=== PATIENT | male | born 1945 | race Caucasian/White ===

== ENCOUNTER → 2019-11-13 | Outpatient (CLI) | payer MEDICARE ==
[~2019-11-13] MED LIST: ATOR20 PO; Aspir 8181 MG PO; DULO60 PO; ENDOCET PO; EUTHYROX50 MCG PO; FAMO40 PO; FERSU300 PO; FLUTICASONE-SA1 EAC1 INH; GABA300 PO; GABA600 PO; HYDMOR2 PO; LACT10SY PO; LISI20 PO; METO25ER PO; MORP30 PO; NAPR250 PO; NAPR500ERA PO; OMEP40CA12 PO; OXYACE5T PO; OXYC15ER PO; OXYC20ER PO; OXYC5 PO; OXYCODONE HCL E20 MG PO; PRILOSEC; Prilosec Otc20 MG PO; RXHYDMOR2 PO; SERT50 PO
[2019-11-13 12:46] LABS: BASOPHILS ABSOLUTE AUTO 0.03 K/mm3 (0.00-0.23); BASOPHILS PERCENT AUTO 1 % (0-2); EOSINOPHILS ABSOLUTE AUTO 0.36 K/mm3 (0.00-0.68); EOSINOPHILS PERCENT AUTO 6 % (0-6); Hemoglobin 13.1 g/dL (13.5-17.5); IMMATURE GRAN ABSOLUTE AUTO 0.01 K/mm3 (0.00-0.10); IMMATURE GRAN PERCENT AUTO 0 % (0-1); LYMPHOCYTES ABSOLUTE AUTO 2.43 K/mm3 (0.84-5.20); LYMPHOCYTES PERCENT AUTO 41 % (21-46); MONOCYTES ABSOLUTE AUTO 0.44 K/mm3 (0.16-1.47); MONOCYTES PERCENT AUTO 7 % (4-13); Mean Corpuscular HGB Conc 33.6 g/dL (31.5-36.5); Mean Corpuscular Volume 89 fL (80-100); Mean Platelet Volume 9.4 fL (9.1-12.4); NEUTROPHILS ABSOLUTE AUTO 2.67 K/mm3 (1.96-9.15); NEUTROPHILS PERCENT AUTO 45 % (41-73); Platelet Count 261 K/mm3 (150-400); RDW Coefficient Variation 13.7 % (11.7-14.2); RDW Standard Deviation 44.7 fL (35.1-46.3); Red Blood Cell Count 4.37 M/mm3 (4.30-5.90); White Blood Cell Count 5.94 K/mm3 (4.00-11.30)
[2019-11-13 13:01] LABS: Alanine Aminotransfer (ALT/SGP 20 U/L (12-78); Albumin, Blood 4.1 g/dL (3.4-5.0); Albumin/Globulin Ratio 1.3 (0.8-1.8); Alk Phos 83 U/L (40-126); Anion Gap 11 mmol/L (6-16); Aspartate Aminotrans (AST/SGOT 18 U/L (12-37); Bilirubin, Total 0.8 mg/dL (0.1-1.0); Blood Urea Nitrogen 68 mg/dL (8-24); Bun/Creatinine Ratio 16.3 (12.0-20.0); CO2, Blood 27 mmol/L (21-32); Calcium, Blood 8.2 mg/dL (8.5-10.1); Chloride, Blood 101 mmol/L (98-108); Creatinine, Blood 4.17 mg/dL (0.60-1.20); Free Thyroxine 1.49 ng/dL (0.70-1.60); Globulin, Blood 3.2 g/dL (2.2-4.0); Glomerular Filtration Rate 14 (60-); Glucose, Blood 152 mg/dL (70-99); Potassium, Blood 4.2 mmol/L (3.5-5.5); Sodium, Blood 139 mmol/L (136-145); Thyroid Stimulating Hormone 2.109 uIU/mL (0.360-4.800); Total Protein, Blood 7.3 g/dL (6.4-8.2)
[2019-11-13 13:04] LABS: Troponin I <0.017 ng/mL (0.000-0.040)
== END | disposition home or self-care (01) ==
LOC: LAB SHORT 12:35 → LAB EV 12:35
PROVIDERS: General Practice
DX: I95.9 Hypotension, unspecified (principal); R53.81 Other malaise; R42 Dizziness and giddiness; N17.9 Acute kidney failure, unspecified
CPT/HCPCS: 80053; 82550; 83880; 84439; 84443; 84484; 85025

== ENCOUNTER → 2019-11-14 | Outpatient (CLI) | payer MEDICARE ==
[2019-11-14 10:40] LABS: BASOPHILS ABSOLUTE AUTO 0.04 K/mm3 (0.00-0.23); BASOPHILS PERCENT AUTO 1 % (0-2); EOSINOPHILS ABSOLUTE AUTO 0.35 K/mm3 (0.00-0.68); EOSINOPHILS PERCENT AUTO 5 % (0-6); Hematocrit 35.2 % (37.0-53.0); Hemoglobin 11.3 g/dL (13.5-17.5); IMMATURE GRAN ABSOLUTE AUTO 0.02 K/mm3 (0.00-0.10); IMMATURE GRAN PERCENT AUTO 0 % (0-1); LYMPHOCYTES ABSOLUTE AUTO 1.78 K/mm3 (0.84-5.20); LYMPHOCYTES PERCENT AUTO 26 % (21-46); MONOCYTES ABSOLUTE AUTO 0.51 K/mm3 (0.16-1.47); MONOCYTES PERCENT AUTO 7 % (4-13); Mean Corpuscular HGB 29.7 pg (26.0-34.0); Mean Corpuscular HGB Conc 32.1 g/dL (31.5-36.5); Mean Corpuscular Volume 92 fL (80-100); Mean Platelet Volume 9.1 fL (9.1-12.4); NEUTROPHILS ABSOLUTE AUTO 4.16 K/mm3 (1.96-9.15); NEUTROPHILS PERCENT AUTO 61 % (41-73); Platelet Count 190 K/mm3 (150-400); RDW Coefficient Variation 13.6 % (11.7-14.2); RDW Standard Deviation 46.3 fL (35.1-46.3); Red Blood Cell Count 3.81 M/mm3 (4.30-5.90); White Blood Cell Count 6.86 K/mm3 (4.00-11.30)
[2019-11-14 10:45] LABS: Bun/Creatinine Ratio 24.3 (12.0-20.0); Calcium, Blood 7.1 mg/dL (8.5-10.1); Creatinine, Blood 1.85 mg/dL (0.60-1.20); Potassium, Blood 4.8 mmol/L (3.5-5.5)
== END | disposition home or self-care (01) ==
LOC: LAB SHORT 10:36 → LAB EV 10:36
PROVIDERS: General Practice
DX: N17.9 Acute kidney failure, unspecified (principal)
CPT/HCPCS: 80048; 85025

== ENCOUNTER 2020-10-13 09:55 | Day surgery (SDC) | payer MEDICARE ==
[~2020-10-13] VITALS: Ht 172.7 cm; Wt 81.9 kg
[~2020-10-13 09:55] MED LIST changes: +CELE100 PO; +DOCU100 PO; +HYDROCHLOROTH12.5 MG PO; +LIPITOR10 MG PO; +ONDA4 PO
--- NOTE | 2020-10-13 11:22 | NUR ---
10/13/20 1122 Maura Judge FIRST ATTEMPT MISSED BY GISSELLE IN THE RIGHT HAND. SECOND ATTEMPT MISSED IN THE RIGHT HAND BY RN. THIRD ATTEMPT MISSED BY RN IN THE LEFT HAND. FOURTH ATTEMPT MISSED BY RN IN THE LEFT WRIST.
== END 2020-10-13 13:10 | disposition home or self-care (01) ==
LOC: ORSCSDS 09:55
PROVIDERS: Internal Medicine Gastroenterology
PROC: 0DBN8ZX Excision of Sigmoid Colon, Via Natural or Artificial Opening Endoscopic, Diagnostic (ICD-10-PCS; principal; 2020-10-13 11:45)
PROC: 0DB58ZX Excision of Esophagus, Via Natural or Artificial Opening Endoscopic, Diagnostic (ICD-10-PCS; principal; 2020-10-13 11:45)
PROC: 0D758ZZ Dilation of Esophagus, Via Natural or Artificial Opening Endoscopic (ICD-10-PCS; principal; 2020-10-13 11:45)
PROC: 0DBM8ZX Excision of Descending Colon, Via Natural or Artificial Opening Endoscopic, Diagnostic (ICD-10-PCS; principal; 2020-10-13 11:45)
PROC: 0DB68ZX Excision of Stomach, Via Natural or Artificial Opening Endoscopic, Diagnostic (ICD-10-PCS; principal; 2020-10-13 11:45)
DX: R13.10 Dysphagia, unspecified (principal); R11.2 Nausea with vomiting, unspecified; Z86.010 Personal history of colon polyps; D12.4 Benign neoplasm of descending colon; D12.5 Benign neoplasm of sigmoid colon; I10 Essential (primary) hypertension; I25.10 Atherosclerotic heart disease of native coronary artery without angina pectoris; G47.33 Obstructive sleep apnea (adult) (pediatric); D64.9 Anemia, unspecified; K57.30 Diverticulosis of large intestine without perforation or abscess without bleeding; Z79.82 Long term (current) use of aspirin; Z79.899 Other long term (current) drug therapy
CPT/HCPCS: 88305; 88342; J2704; J7120

== ENCOUNTER → 2020-11-27 | Outpatient (CLI) | payer MEDICARE ==
[2020-11-27 13:55] LABS: Microalbumin, Urine Quant. <5.000 mg/L (0.000-20.000); Protein, Urine Quantitative <5.0 mg/dL (0.0-11.9)
== END | disposition home or self-care (01) ==
LOC: LAB 11:08 → LAB SHORT 11:08 → LAB FUT 11-20 12:35
PROVIDERS: Internal Medicine Nephrology
DX: N18.30 Chronic kidney disease, stage 3 unspecified (principal); D63.1 Anemia in chronic kidney disease; N25.81 Secondary hyperparathyroidism of renal origin; E55.9 Vitamin D deficiency, unspecified; E78.00 Pure hypercholesterolemia, unspecified; G60.9 Hereditary and idiopathic neuropathy, unspecified; D51.8 Other vitamin B12 deficiency anemias; D52.8 Other folate deficiency anemias; D50.9 Iron deficiency anemia, unspecified; R76.9 Abnormal immunological finding in serum, unspecified; R94.5 Abnormal results of liver function studies; R94.6 Abnormal results of thyroid function studies
CPT/HCPCS: 81050; 82043; 82570; 84156

== ENCOUNTER → 2024-01-31 | Outpatient (CLI) | payer OTHER ==
[2024-01-31 13:58] LABS: BASOPHILS ABSOLUTE AUTO 0.02 K/mm3 (0.00-0.23); BASOPHILS PERCENT AUTO 0 % (0-2); EOSINOPHILS ABSOLUTE AUTO 0.25 K/mm3 (0.00-0.68); EOSINOPHILS PERCENT AUTO 3 % (0-6); Hematocrit 35.3 % (37.0-53.0); Hemoglobin 11.3 g/dL (13.5-17.5); IMMATURE GRAN ABSOLUTE AUTO 0.02 K/mm3 (0.00-0.10); IMMATURE GRAN PERCENT AUTO 0 % (0-1); LYMPHOCYTES ABSOLUTE AUTO 2.59 K/mm3 (0.84-5.20); LYMPHOCYTES PERCENT AUTO 27 % (21-46); MONOCYTES ABSOLUTE AUTO 0.69 K/mm3 (0.16-1.47); MONOCYTES PERCENT AUTO 7 % (4-13); Mean Corpuscular HGB 28.7 pg (26.0-34.0); Mean Corpuscular Volume 90 fL (80-100); Mean Platelet Volume 8.2 fL (9.1-12.4); NEUTROPHILS ABSOLUTE AUTO 6.18 K/mm3 (1.96-9.15); NEUTROPHILS PERCENT AUTO 63 % (41-73); Platelet Count 261 K/mm3 (150-400); RDW Coefficient Variation 14.2 % (11.7-14.2); RDW Standard Deviation 46.1 fL (35.1-46.3); Red Blood Cell Count 3.94 M/mm3 (4.30-5.90); White Blood Cell Count 9.75 K/mm3 (4.00-11.30)
[2024-01-31 14:03] LABS: Calcium, Blood 8.6 mg/dL (8.5-10.1); Creatinine, Blood 1.27 mg/dL (0.60-1.20); Potassium, Blood 4.2 mmol/L (3.5-5.5)
== END | disposition home or self-care (01) ==
LOC: LAB 13:53 → LAB SHORT 13:53
PROVIDERS: Physician Assistant
DX: R53.83 Other fatigue (principal)
CPT/HCPCS: 80048; 85025

== ENCOUNTER → 2024-05-04 | Outpatient (CLI) | payer OTHER | LOC: LAB 16:23 → LAB SHORT 16:23 | DX: N39.0 Urinary tract infection, site not specified (principal) | CPT/HCPCS: 87086 ==

== ENCOUNTER 2024-10-14 09:50 | Emergency (ER) | payer OTHER ==
[~2024-10-14] VITALS: Ht 172.7 cm; Wt 78.9 kg
[2024-10-14] MEDS ORDERED: SYNTHROID50 MC1 PO ×2 (10:04)
[2024-10-14] MEDS ORDERED: AMLODIPINE BESYL5 MG PO ×2 (10:04)
[2024-10-14] MEDS ORDERED: XTAMPZA ER18 MG PO ×2 (10:05)
[2024-10-14] MEDS ORDERED: BISA10S PR (10:06)
[2024-10-14] MEDS ORDERED: Robaxin750 MG PO (10:08)
[2024-10-14] MEDS ORDERED: OXYC5 PO ×2 (10:08)
[2024-10-14] MEDS ORDERED: Lidocaine 2% Viscous Soln 15 ML UDC PO ONE (10:25)
[2024-10-14 10:28] LABS: BASOPHILS ABSOLUTE AUTO 0.04 K/mm3 (0.00-0.23); BASOPHILS PERCENT AUTO 0 % (0-2); EOSINOPHILS ABSOLUTE AUTO 0.04 K/mm3 (0.00-0.68); EOSINOPHILS PERCENT AUTO 0 % (0-6); Hematocrit 32.5 % (37.0-53.0); Hemoglobin 10.5 g/dL (13.5-17.5); IMMATURE GRAN ABSOLUTE AUTO 0.11 K/mm3 (0.00-0.10); IMMATURE GRAN PERCENT AUTO 1 % (0-1); LYMPHOCYTES ABSOLUTE AUTO 3.30 K/mm3 (0.84-5.20); LYMPHOCYTES PERCENT AUTO 21 % (21-46); MONOCYTES ABSOLUTE AUTO 1.18 K/mm3 (0.16-1.47); MONOCYTES PERCENT AUTO 7 % (4-13); Mean Corpuscular HGB Conc 32.3 g/dL (31.5-36.5); Mean Corpuscular Volume 86 fL (80-100); NEUTROPHILS ABSOLUTE AUTO 11.25 K/mm3 (1.96-9.15); NEUTROPHILS PERCENT AUTO 71 % (41-73); NRBC ABSOLUTE 0.00 K/mm3 (0.00-0.02); NRBC Auto 0.0 /100 WBC (0.0-0.2); Platelet Count 398 K/mm3 (150-400); RDW Coefficient Variation 22.3 % (11.7-14.2); RDW Standard Deviation 68.5 fL (35.1-46.3)
[2024-10-14 10:51] LABS: Alanine Aminotransfer (ALT/SGP 148.0 U/L (12-78); Albumin, Blood 2.6 g/dL (3.4-5.0); Albumin/Globulin Ratio 0.6 (0.8-1.8); Anion Gap 8.0 mmol/L (3-11); Aspartate Aminotrans (AST/SGOT 59.0 U/L (12-37); Bilirubin, Total 0.4 mg/dL (0.1-1.0); Blood Urea Nitrogen 36.0 mg/dL (8-24); CO2, Blood 27.0 mmol/L (21-32); Calcium, Blood 8.7 mg/dL (8.5-10.1); Chloride, Blood 100.0 mmol/L (98-108); Creatinine, Blood 0.91 mg/dL (0.60-1.20); Globulin, Blood 4.0 g/dL (2.2-4.0); Glucose, Blood 145.0 mg/dL (70-99); Potassium, Blood 4.7 mmol/L (3.5-5.5); Sodium, Blood 130.0 mmol/L (136-145); Total Protein, Blood 6.6 g/dL (6.4-8.2)
[2024-10-14] MEDS ORDERED: Ondansetron HCl 2 MG / ML 2ML Vial IV ONE (11:40)
[2024-10-14] MEDS ORDERED: Colace100 MG PO (12:37)
[2024-10-14] MEDS ORDERED: OMEP20ER PO (12:37)
[2024-10-14 12:52] VITALS: BP 115/73
[2024-10-15] MEDS ORDERED: Calcium Carbon500 MG PO (06:17)
[2024-10-15] MEDS ORDERED: OMEP20ER PO ×3 (06:17→23:21)
[2024-10-15] MEDS ORDERED: FAMO20 PO (23:20)
[2024-10-15] MEDS ORDERED: COLACE100 MG PO ×2 (23:23)
[2024-10-15] MEDS ORDERED: AMITRIPTYLINE H25 MG PO ×2 (23:24)
== END 2024-10-14 13:00 | disposition home or self-care (01) ==
LOC: ER 09:50
PROVIDERS: Emergency Medicine
DX: R10.13 Epigastric pain (principal); I10 Essential (primary) hypertension; K21.9 Gastro-esophageal reflux disease without esophagitis; E78.5 Hyperlipidemia, unspecified; Z79.899 Other long term (current) drug therapy; Z79.2 Long term (current) use of antibiotics
CPT/HCPCS: 74022; 80053; 83690; 84484; 85025; 93005; 93010; 96374; 99284-25; A9270; J2405

== ENCOUNTER 2024-10-15 02:48 | Emergency (ER) | payer OTHER ==
[~2024-10-15] VITALS: Ht 172.7 cm; Wt 78.9 kg
[~2024-10-15 02:48] MED LIST changes: +AMLODIPINE BESYL5 MG PO; +BISA10S PR; +Colace100 MG PO; +OMEP20ER PO; +Robaxin750 MG PO; +SYNTHROID50 MC1 PO; +XTAMPZA ER18 MG PO
[2024-10-15 03:08] LABS: BASOPHILS ABSOLUTE AUTO 0.05 K/mm3 (0.00-0.23); BASOPHILS PERCENT AUTO 0 % (0-2); EOSINOPHILS ABSOLUTE AUTO 0.03 K/mm3 (0.00-0.68); EOSINOPHILS PERCENT AUTO 0 % (0-6); Hematocrit 30.9 % (37.0-53.0); Hemoglobin 9.8 g/dL (13.5-17.5); IMMATURE GRAN ABSOLUTE AUTO 0.12 K/mm3 (0.00-0.10); IMMATURE GRAN PERCENT AUTO 1 % (0-1); LYMPHOCYTES ABSOLUTE AUTO 3.36 K/mm3 (0.84-5.20); LYMPHOCYTES PERCENT AUTO 15 % (21-46); MONOCYTES ABSOLUTE AUTO 1.28 K/mm3 (0.16-1.47); MONOCYTES PERCENT AUTO 6 % (4-13); Mean Corpuscular HGB Conc 31.7 g/dL (31.5-36.5); Mean Corpuscular Volume 86 fL (80-100); NEUTROPHILS ABSOLUTE AUTO 17.05 K/mm3 (1.96-9.15); NEUTROPHILS PERCENT AUTO 78 % (41-73); NRBC ABSOLUTE 0.00 K/mm3 (0.00-0.02); NRBC Auto 0.0 /100 WBC (0.0-0.2); Platelet Count 471 K/mm3 (150-400); RDW Coefficient Variation 22.3 % (11.7-14.2); RDW Standard Deviation 68.5 fL (35.1-46.3)
[2024-10-15 03:27] LABS: Alanine Aminotransfer (ALT/SGP 123.0 U/L (12-78); Albumin, Blood 2.7 g/dL (3.4-5.0); Albumin/Globulin Ratio 0.7 (0.8-1.8); Anion Gap 8.0 mmol/L (3-11); Aspartate Aminotrans (AST/SGOT 38.0 U/L (12-37); Bilirubin, Total 0.3 mg/dL (0.1-1.0); Blood Urea Nitrogen 38.0 mg/dL (8-24); CO2, Blood 27.0 mmol/L (21-32); Calcium, Blood 8.4 mg/dL (8.5-10.1); Chloride, Blood 101.0 mmol/L (98-108); Creatinine, Blood 0.92 mg/dL (0.60-1.20); Globulin, Blood 3.7 g/dL (2.2-4.0); Glucose, Blood 156.0 mg/dL (70-99); Potassium, Blood 4.9 mmol/L (3.5-5.5); Sodium, Blood 131.0 mmol/L (136-145); Total Protein, Blood 6.4 g/dL (6.4-8.2)
[2024-10-15] MEDS ORDERED: Lidocaine 2% Viscous Soln 15 ML UDC PO ONE (03:35)
[2024-10-15 06:00] VITALS: BP 101/73
[2024-10-15] MEDS ORDERED: OMEP20ER PO ×3 (06:17→23:21)
[2024-10-15] MEDS ORDERED: Calcium Carbon500 MG PO (06:17)
[2024-10-15] MEDS ORDERED: NS 1,000 ML IV ONE (21:56)
[2024-10-15] MEDS ORDERED: FAMO20 PO (23:20)
[2024-10-15] MEDS ORDERED: COLACE100 MG PO ×2 (23:23)
[2024-10-15] MEDS ORDERED: AMITRIPTYLINE H25 MG PO ×2 (23:24)
== END 2024-10-15 06:47 | disposition home or self-care (01) ==
LOC: ER 02:48
PROVIDERS: Student in an Organized Health Care Education/Training Program
DX: K21.9 Gastro-esophageal reflux disease without esophagitis (principal); Z79.82 Long term (current) use of aspirin; Z79.890 Hormone replacement therapy; Z79.899 Other long term (current) drug therapy; E78.5 Hyperlipidemia, unspecified
CPT/HCPCS: 71045; 80053; 83690; 83735; 84484; 85025; 93005; 93010; 99284-25; A9270; J7030; J7120

== ENCOUNTER 2024-10-15 21:32 | Inpatient (IN) | payer OTHER ==
[~2024-10-15] VITALS: Ht 172.7 cm; Wt 78.6 kg
[~2024-10-15 21:32] MED LIST changes: +Calcium Carbon500 MG PO
[2024-10-15] MEDS ORDERED: NS 1,000 ML IV SCH (21:50)
[2024-10-15 21:54] LABS: BASOPHILS ABSOLUTE AUTO 0.04 K/mm3 (0.00-0.23); BASOPHILS PERCENT AUTO 0 % (0-2); EOSINOPHILS ABSOLUTE AUTO 0.01 K/mm3 (0.00-0.68); EOSINOPHILS PERCENT AUTO 0 % (0-6); Hematocrit 26.0 % (37.0-53.0); Hemoglobin 8.1 g/dL (13.5-17.5); IMMATURE GRAN ABSOLUTE AUTO 0.09 K/mm3 (0.00-0.10); IMMATURE GRAN PERCENT AUTO 1 % (0-1); LYMPHOCYTES ABSOLUTE AUTO 3.55 K/mm3 (0.84-5.20); LYMPHOCYTES PERCENT AUTO 23 % (21-46); MONOCYTES ABSOLUTE AUTO 0.78 K/mm3 (0.16-1.47); MONOCYTES PERCENT AUTO 5 % (4-13); Mean Corpuscular HGB Conc 31.2 g/dL (31.5-36.5); Mean Corpuscular Volume 87 fL (80-100); NEUTROPHILS ABSOLUTE AUTO 10.70 K/mm3 (1.96-9.15); NEUTROPHILS PERCENT AUTO 71 % (41-73); NRBC ABSOLUTE 0.00 K/mm3 (0.00-0.02); NRBC Auto 0.0 /100 WBC (0.0-0.2); Platelet Count 443 K/mm3 (150-400); RDW Coefficient Variation 22.6 % (11.7-14.2); RDW Standard Deviation 70.0 fL (35.1-46.3)
[2024-10-15 22:12] LABS: Source, Urine Clean Catch
[2024-10-15 22:15] LABS: Alanine Aminotransfer (ALT/SGP 115.0 U/L (12-78); Albumin, Blood 2.4 g/dL (3.4-5.0); Albumin/Globulin Ratio 0.8 (0.8-1.8); Anion Gap 9.0 mmol/L (3-11); Aspartate Aminotrans (AST/SGOT 56.0 U/L (12-37); Bilirubin, Total 0.3 mg/dL (0.1-1.0); Blood Urea Nitrogen 56.0 mg/dL (8-24); CO2, Blood 24.0 mmol/L (21-32); Calcium, Blood 8.0 mg/dL (8.5-10.1); Chloride, Blood 104.0 mmol/L (98-108); Creatinine, Blood 2.05 mg/dL (0.60-1.20); Globulin, Blood 3.1 g/dL (2.2-4.0); Glucose, Blood 131.0 mg/dL (70-99); Potassium, Blood 5.5 mmol/L (3.5-5.5); Sodium, Blood 131.0 mmol/L (136-145); Total Protein, Blood 5.5 g/dL (6.4-8.2)
[2024-10-15 22:28] LABS: Bilirubin, Urine Neg (Neg); Glucose Qualitative, Urine Neg (Neg); Ketones, Urine Neg (Neg); Leukocyte Esterase, Urine Neg (Neg); Protein, Urine 1+ (Neg); Specific Gravity, Urine 1.015 (1.003-1.022); Urobilinogen, Urine NORM (Normal)
[2024-10-15 23:01] LABS: Color, Urine Yellow (P-Yellow); White Blood Cells, Urine 0-2 /hpf (0-5)
[2024-10-15] MEDS ORDERED: Cefepime HCl 2,000 MG in NS 100 ML IV ONE (23:15)
[2024-10-15] MEDS ORDERED: Vancomycin (Pharmacy Consult) IV PRN (23:15)
[2024-10-15] MEDS ORDERED: FAMO20 PO (23:20)
[2024-10-15] MEDS ORDERED: OMEP20ER PO ×2 (23:21)
[2024-10-15] MEDS ORDERED: COLACE100 MG PO ×2 (23:23)
[2024-10-15] MEDS ORDERED: AMITRIPTYLINE H25 MG PO ×2 (23:24)
[2024-10-16] VITALS (50 sets, daily range): BP systolic 82–151; BP diastolic 49–88
[2024-10-16] MEDS ORDERED: Vancomycin (Pharmacy Consult) IV SCH (00:25)
[2024-10-16 01:29] LABS: Hematocrit 22.1 % (37.0-53.0); Hemoglobin 7.1 g/dL (13.5-17.5)
[2024-10-16 01:35] LABS: pH Blood Venous 7.43 (7.34-7.37)
[2024-10-16 01:36] LABS: Prothrombin Time Results 12.5 Sec (9.7-11.5)
[2024-10-16 02:37] LABS: Influenza A, PCR NEGATIVE (NEGATIVE); Influenza B, PCR NEGATIVE (NEGATIVE); Resp Syncytial Virus, PCR NEGATIVE (NEGATIVE); SARS-Cov-2 (COVID-19) PCR, MMC NEGATIVE (NEGATIVE)
[2024-10-16] MEDS ORDERED: NS 500 ML IV ONE (03:31)
[2024-10-16] MEDS ORDERED: Pantoprazole Sodium 40 MG Injection IV SCH (06:00)
--- NOTE | 2024-10-16 06:31 | NUR ---
SHIFT SUMMARY PATIENT ARRIVED TO ICU FROM ED AT 0228. LEVOPHED RUNNING AT 9.8MCG/MIN. PATIENT ALERT BUT CONFUSED. FOLLOWED COMMANDS IN ALL 4 EXTREMITIES. A FIB WITH RATE 90-110'S. PULSES PALPABLE THROUGHOUT. PATIENT WAS ON 15L NON REBREATHER, RESPIRATORY THERAPIST TRANSITIONED TO 10L HFNC. PATIENT SATING >95%. CLEAR OVER DIMINISHED LUNG SOUNDS. BOWEL SOUNDS ACTIVE. REDNESS NOTED ON SACRUM AND LEFT HEEL. PICTURES TAKEN AND PLACED IN CHART. 1 UNIT PRBCS GIVEN. LEVOPHED TITRATED PER EMAR TO MAINTAIN MAP >65. CENTRAL LINE IN PLACE, INFUSING. NOTED TO NOT BE SUTURED BUT SECURED BY CHG TEGADERM. PIV IN LEFT AC AND RIGHT FOREARM. GARCIA IN PLACE FROM ER. PATIENT VERY PLEASANT AND NO DISTRESS NOTED ON EXAM. SIDE RAILS UP AND CALL LIGHT WITHIN REACH. CARE PLAN ONGOING.
[2024-10-16 07:09] LABS: BASOPHILS ABSOLUTE AUTO 0.04 K/mm3 (0.00-0.23); BASOPHILS PERCENT AUTO 0 % (0-2); EOSINOPHILS ABSOLUTE AUTO 0.01 K/mm3 (0.00-0.68); EOSINOPHILS PERCENT AUTO 0 % (0-6); Hematocrit 26.4 % (37.0-53.0); Hemoglobin 8.6 g/dL (13.5-17.5); IMMATURE GRAN ABSOLUTE AUTO 0.08 K/mm3 (0.00-0.10); IMMATURE GRAN PERCENT AUTO 1 % (0-1); LYMPHOCYTES ABSOLUTE AUTO 3.50 K/mm3 (0.84-5.20); LYMPHOCYTES PERCENT AUTO 21 % (21-46); MONOCYTES ABSOLUTE AUTO 0.36 K/mm3 (0.16-1.47); MONOCYTES PERCENT AUTO 2 % (4-13); Mean Corpuscular HGB Conc 32.6 g/dL (31.5-36.5); Mean Corpuscular Volume 87 fL (80-100); NEUTROPHILS ABSOLUTE AUTO 12.89 K/mm3 (1.96-9.15); NEUTROPHILS PERCENT AUTO 76 % (41-73); NRBC ABSOLUTE 0.00 K/mm3 (0.00-0.02); NRBC Auto 0.0 /100 WBC (0.0-0.2); Platelet Count 428 K/mm3 (150-400); RDW Coefficient Variation 21.7 % (11.7-14.2); RDW Standard Deviation 67.6 fL (35.1-46.3)
[2024-10-16 07:31] LABS: Alanine Aminotransfer (ALT/SGP 105.0 U/L (12-78); Albumin, Blood 2.2 g/dL (3.4-5.0); Albumin/Globulin Ratio 0.7 (0.8-1.8); Anion Gap 7.0 mmol/L (3-11); Aspartate Aminotrans (AST/SGOT 44.0 U/L (12-37); Bilirubin, Total 0.4 mg/dL (0.1-1.0); Blood Urea Nitrogen 38.0 mg/dL (8-24); CO2, Blood 22.0 mmol/L (21-32); Calcium, Blood 8.1 mg/dL (8.5-10.1); Chloride, Blood 111.0 mmol/L (98-108); Creatinine, Blood 1.37 mg/dL (0.60-1.20); Globulin, Blood 3.3 g/dL (2.2-4.0); Glucose, Blood 188.0 mg/dL (70-99); Magnesium, Blood 2.7 mg/dL (1.6-2.4); Potassium, Blood 5.3 mmol/L (3.5-5.5); Sodium, Blood 135.0 mmol/L (136-145); Total Protein, Blood 5.5 g/dL (6.4-8.2)
[2024-10-16] MEDS ORDERED: Lactobacil 2-S.Thermo-Bifido 1 1 Cap PO SCH (09:00)
[2024-10-16] MEDS ORDERED: Cefepime HCl 1,000 MG in NS 100 ML IV SCH (09:00)
[2024-10-16] MEDS ORDERED: Enoxaparin 40 MG/0.4 ML SYR SC SCH (09:00)
[2024-10-16] MEDS ORDERED: NS 500 ML IV SCH (13:45)
[2024-10-16 14:47] LABS: Vancomycin, Random 11.1 ug/mL
--- NOTE | 2024-10-16 18:53 | NUR ---
RAND HAS CONTINUED TO IMPROVE THROUGHOUT THE DAY. HE HAS RECEIVED HIS ANTIBIOTICS AND REMAINED OFF THE LEVOPHED T/O THE DAY. 2 OF 3 OF HIS SONS HAVE VISITED. HE HAS NOT YET BEEN OUT OF BED. GARCIA W/ GOOD OUTPUT. RIGHT FOREARM PIV INTACT WITHOUT SWELLING/REDNESS/PAIN. STILL EXHIBITS SOME WORD SALAD. WORKING THROUGH SOME MEMORIES OVER THE LAST FEW DAYS.
--- NOTE | 2024-10-16 19:27 | NUR ---
ASSUMPTION OF CARE ASSUMED CARE OF PATIENT AT 1900. BEDSIDE HANDOFF GIVEN BY MOE PINO. PATIENT AWAKE AND ALERT, EATING DINNER. ENDORSES SOME STOMACH PAIN WHILE EATING. ALVAREZ AND PATIENT REPORT CARE TEAM AWARE. PATIENT ON 3L NC. BREATHING EVEN AND UNLABORED. NSR ON CONTINOUS CARDIAC MONITORING WITH HR IN THE 80-90S. PATIENT EXPRESSES NO NEEDS AT THIS MOMENT. CALL LIGHT WITHIN REACH. CARE PLAN ONGOING.
[2024-10-17] VITALS (23 sets, daily range): BP systolic 95–154; BP diastolic 53–79
[2024-10-17 04:35] LABS: BASOPHILS ABSOLUTE AUTO 0.04 K/mm3 (0.00-0.23); BASOPHILS PERCENT AUTO 0 % (0-2); EOSINOPHILS ABSOLUTE AUTO 0.11 K/mm3 (0.00-0.68); EOSINOPHILS PERCENT AUTO 1 % (0-6); Hematocrit 22.5 % (37.0-53.0); Hemoglobin 7.4 g/dL (13.5-17.5); IMMATURE GRAN ABSOLUTE AUTO 0.05 K/mm3 (0.00-0.10); IMMATURE GRAN PERCENT AUTO 0 % (0-1); LYMPHOCYTES ABSOLUTE AUTO 5.13 K/mm3 (0.84-5.20); LYMPHOCYTES PERCENT AUTO 38 % (21-46); MONOCYTES ABSOLUTE AUTO 0.74 K/mm3 (0.16-1.47); MONOCYTES PERCENT AUTO 6 % (4-13); Mean Corpuscular HGB Conc 32.9 g/dL (31.5-36.5); Mean Corpuscular Volume 87 fL (80-100); NEUTROPHILS ABSOLUTE AUTO 7.37 K/mm3 (1.96-9.15); NEUTROPHILS PERCENT AUTO 55 % (41-73); NRBC ABSOLUTE 0.00 K/mm3 (0.00-0.02); NRBC Auto 0.0 /100 WBC (0.0-0.2); Platelet Count 430 K/mm3 (150-400); RDW Coefficient Variation 21.9 % (11.7-14.2); RDW Standard Deviation 68.2 fL (35.1-46.3)
[2024-10-17 05:04] LABS: Anion Gap 7.0 mmol/L (3-11); Blood Urea Nitrogen 35.0 mg/dL (8-24); CO2, Blood 23.0 mmol/L (21-32); Calcium, Blood 7.9 mg/dL (8.5-10.1); Chloride, Blood 114.0 mmol/L (98-108); Creatinine, Blood 1.15 mg/dL (0.60-1.20); Glucose, Blood 88.0 mg/dL (70-99); Potassium, Blood 4.1 mmol/L (3.5-5.5); Sodium, Blood 140.0 mmol/L (136-145)
[2024-10-17 05:06] LABS: BAND PERCENT MAN 1 % (0-8); BASOPHILS ABSOLUTE MAN 0.00 K/mm3 (0.00-0.23); BASOPHILS PERCENT MAN 0 % (0-2); EOSINOPHILS ABSOLUTE MAN 0.00 K/mm3 (0.00-0.68); EOSINOPHILS PERCENT MAN 0 % (0-6); LYMPHOCYTES ABSOLUTE MAN 5.10 K/mm3 (0.84-5.20); LYMPHOCYTES PERCENT MAN 38 % (21-46); MONOCYTES ABSOLUTE MAN 0.40 K/mm3 (0.16-1.47); MONOCYTES PERCENT MAN 3 % (4-13); NEUTROPHILS ABSOLUTE MAN 7.92 K/mm3 (1.96-9.15); SEG NEUTROPHILS PERCENT MAN 58 % (41-73)
--- NOTE | 2024-10-17 06:23 | NUR ---
SHIFT SUMMARY NO ACUTE EVENTS OVERNIGHT. PATIENT ENDORSES BACK PAIN, PRN TYLENOL GIVEN PER MAR. A&O X4. SOME DIFFICULTY REMAINS WITH WORD FINDING. PATIENT RESTING THROUGHOUT THE NIGHT. ON ROOM AIR AT THE END OF SHIFT. SPO2 >95%. BREATHING EVEN AND UNLABORED. SINUS RHYTHM ON CARDIAC MONITORING. HR IN THE 70-80S. NO BOWELMOVEMENT OVERNIGHT. GARCIA CATHETER REMAINS IN PLACE WITH ADEQUATE URINE OUTPUT. 1 PIV AND 1 CVC. REPOSITIONS SELF IN BED. CARE PLAN ONGOING.
--- NOTE | 2024-10-17 18:46 | NUR ---
LENA HAS BEEN UP IN THE CHAIR X 2 TODAY, TOLERATED EATING BREAKFAST AND LUNCH. CONTINUES TO GET PAIN IN THE ABDOMEN AFTER INTAKE AND SOMETIMES WITHOUT ANY INTAKE. HIS CENTRAL ACCESS WAS REMOVED, THE GARCIA CATHETER WAS DC'D. HE HAS BEEN AFEBRILE AND MORE ORIENTED T/O THE DAY. BACK INCISION REMAINS COVERED WITH BANDAGE. USING URINAL TO VOID, BRIEF IN PLACE.
[2024-10-17] MEDS ORDERED: Polyethylene Glycol 3350 17 gm PO SCH (21:00)
--- NOTE | 2024-10-17 23:55 | NUR ---
REPORT GIVEN TO CLARI ROSA AT 2330. PATIENT ALERT & ORIENTED. VITAL SIGNS STABLE. RESTING COMFORTABLY IN BED. PATIENT ASKED NURSE TO CALL SON, ISHA, AND UPDATE ON ROOM TRANSFER. SON CALLED. PATIENT TRANSFERED BY JOSSIE ROSA AT 1423.
--- NOTE | 2024-10-18 03:00 | NUR ---
SHIFT SUMMARY PATIET HAS APPEARED TO SLEEP COMFORTABLY SINCE BEING TRANSFERED TO THE MEDICAL FLOOR. TELEMETRY IS IN PLACE AND PATIENT IS IN SINUS RHYTHM. HE IS ORIENTED X4 AND HAS HIS CALL LIGHT WITHIN REACH. SAFETY PRECAUTIONS ARE BEING MAINTAINED.
[2024-10-18 04:37] VITALS: BP 126/65
[2024-10-18 06:14] LABS: BASOPHILS ABSOLUTE AUTO 0.04 K/mm3 (0.00-0.23); BASOPHILS PERCENT AUTO 0 % (0-2); EOSINOPHILS ABSOLUTE AUTO 0.07 K/mm3 (0.00-0.68); EOSINOPHILS PERCENT AUTO 1 % (0-6); Hematocrit 24.1 % (37.0-53.0); Hemoglobin 7.8 g/dL (13.5-17.5); IMMATURE GRAN ABSOLUTE AUTO 0.09 K/mm3 (0.00-0.10); IMMATURE GRAN PERCENT AUTO 1 % (0-1); LYMPHOCYTES ABSOLUTE AUTO 5.28 K/mm3 (0.84-5.20); LYMPHOCYTES PERCENT AUTO 38 % (21-46); MONOCYTES ABSOLUTE AUTO 0.78 K/mm3 (0.16-1.47); MONOCYTES PERCENT AUTO 6 % (4-13); Mean Corpuscular HGB Conc 32.4 g/dL (31.5-36.5); Mean Corpuscular Volume 88 fL (80-100); NEUTROPHILS ABSOLUTE AUTO 7.57 K/mm3 (1.96-9.15); NEUTROPHILS PERCENT AUTO 55 % (41-73); NRBC ABSOLUTE 0.00 K/mm3 (0.00-0.02); NRBC Auto 0.0 /100 WBC (0.0-0.2); Platelet Count 523 K/mm3 (150-400); RDW Coefficient Variation 21.7 % (11.7-14.2); RDW Standard Deviation 67.6 fL (35.1-46.3)
[2024-10-18 06:39] LABS: Anion Gap 7.0 mmol/L (3-11); Blood Urea Nitrogen 33.0 mg/dL (8-24); CO2, Blood 23.0 mmol/L (21-32); Calcium, Blood 7.6 mg/dL (8.5-10.1); Chloride, Blood 114.0 mmol/L (98-108); Creatinine, Blood 1.04 mg/dL (0.60-1.20); Glucose, Blood 90.0 mg/dL (70-99); Potassium, Blood 3.6 mmol/L (3.5-5.5); Sodium, Blood 140.0 mmol/L (136-145)
[2024-10-18 07:23] VITALS: BP 106/53
[2024-10-18] MEDS ORDERED: NS 250 ML IV PRN (09:10)
[2024-10-18 12:13] LABS: Ferritin, Serum 319.0 ng/mL (26-388); Total Iron Binding Capacity 172.0 ug/dL (250-450)
[2024-10-18 14:35] LABS: Stool Occult Blood Guaiac 1 Pos (Neg)
[2024-10-18 15:13] VITALS: BP 114/66
[2024-10-18] MEDS ORDERED: Pantoprazole Sodium 40 MG Injection IV SCH (16:30)
--- NOTE | 2024-10-18 18:15 | NUR ---
SHIFT SUMMARY PT A&OX4, VSS, AMB W/ ASSIST, VOIDING, AND PAIN MANAGED PER EMAR. PT C/O SWALLOWING DIFFICULTY THIS AM, ST EVALUATED, AND DIET/MED ORDERS UPDATED. PT TOLERATING MEDS AND MEALS. OCCULT POSITIVE. THIS RN NOTIFIED AND GI CONSULT ORDERED. THIS RN CALLED ON CONSULT, CONSULT PENDING. PT AWAITING PHYSICAL THERAPY EVAL. NO OTHER ACUTE CHANGES. CALL LIGHT WITHIN REACH AND PT ABLE TO MAKE NEEDS KNOWN.
[2024-10-18 19:23] VITALS: BP 130/64
[2024-10-18] MEDS ORDERED: CefTRIAXone Sodium 1,000 MG in NS 100 ML IV SCH (20:00)
[2024-10-18 23:33] VITALS: BP 144/87
--- NOTE | 2024-10-19 03:32 | NUR ---
Shift Summary AOx4. Pleasant/cooperative. Ad saurav to bathroom. Calling appropriately. C/O back pain. Patient has chronic pain syndrome which he is taking 5mg oxycodone PO TID PRN at home. It does not appear oxycodone was resumed for this hospitalization. Methocarbamol and tylenol given for pain, moderately effective. Tele: SR 63. Denies dizziness, shortness of breath, n/v. Patient did get some sleep in tonight other than waking up to the bathroom and for vitals. VSS, on RA, afebrile.
[2024-10-19] MEDS ORDERED: Calcium Carbon500 MG PO ×2 (03:49)
[2024-10-19] MEDS ORDERED: Methocarbamol500 MG PO ×2 (03:53)
[2024-10-19] MEDS ORDERED: BISA10S PR (03:55)
[2024-10-19 04:04] VITALS: BP 117/60
[2024-10-19 06:47] LABS: BASOPHILS ABSOLUTE AUTO 0.05 K/mm3 (0.00-0.23); BASOPHILS PERCENT AUTO 1 % (0-2); EOSINOPHILS ABSOLUTE AUTO 0.20 K/mm3 (0.00-0.68); EOSINOPHILS PERCENT AUTO 2 % (0-6); Hematocrit 26.4 % (37.0-53.0); Hemoglobin 8.5 g/dL (13.5-17.5); IMMATURE GRAN ABSOLUTE AUTO 0.14 K/mm3 (0.00-0.10); IMMATURE GRAN PERCENT AUTO 1 % (0-1); LYMPHOCYTES ABSOLUTE AUTO 4.60 K/mm3 (0.84-5.20); LYMPHOCYTES PERCENT AUTO 44 % (21-46); MONOCYTES ABSOLUTE AUTO 0.59 K/mm3 (0.16-1.47); MONOCYTES PERCENT AUTO 6 % (4-13); Mean Corpuscular HGB Conc 32.2 g/dL (31.5-36.5); Mean Corpuscular Volume 88 fL (80-100); NEUTROPHILS ABSOLUTE AUTO 4.79 K/mm3 (1.96-9.15); NEUTROPHILS PERCENT AUTO 46 % (41-73); NRBC ABSOLUTE 0.00 K/mm3 (0.00-0.02); NRBC Auto 0.0 /100 WBC (0.0-0.2); Platelet Count 545 K/mm3 (150-400); RDW Coefficient Variation 21.3 % (11.7-14.2); RDW Standard Deviation 66.9 fL (35.1-46.3)
[2024-10-19 07:04] LABS: Anion Gap 8.0 mmol/L (3-11); Blood Urea Nitrogen 17.0 mg/dL (8-24); CO2, Blood 23.0 mmol/L (21-32); Calcium, Blood 8.0 mg/dL (8.5-10.1); Chloride, Blood 111.0 mmol/L (98-108); Creatinine, Blood 0.93 mg/dL (0.60-1.20); Glucose, Blood 85.0 mg/dL (70-99); Potassium, Blood 3.8 mmol/L (3.5-5.5); Sodium, Blood 138.0 mmol/L (136-145)
[2024-10-19 07:28] VITALS: BP 130/67
[2024-10-19 16:43] VITALS: BP 128/68
--- NOTE | 2024-10-19 17:43 | NUR ---
SHIFT SUMMARY PT WORKED W/ PHYSICAL THERAPY AND PT IS NOW AMB IND W/ OUT DIFFICULTLY. ROUNDED ON PT THIS SHIFT, NO INTERVENTION AT THIS TIME, SEE CONSULT NOTE. NO ACUTE CHANGES. CALL LIGHT WITHIN REACH AND PT ABLE TO MAKE NEEDS KNOWN.
[2024-10-19 19:15] VITALS: BP 145/76
[2024-10-20 03:20] VITALS: BP 151/82
--- NOTE | 2024-10-20 04:45 | NUR ---
SHIFT SUMMARY PT HERE FOR SEPTIC SHOCK. PT HAS BEEN RESTING IN BED COMFORTABLY OVERNIGHT. HE HAS BEEN AOX4, CALM AND COOPERATIVE. HE HAS CALLED APPROPRIATELY OVERNIGHT. PT HAS BEEN INDEPENDENT IN RM AND CONTINENT X2. HE HAS C/O LUMBAR BACK PAIN, WITH MEDICATIONS AND REST RELIEVING IT. PT HAS HAD UNEVENTFUL NIGHT.
[2024-10-20 05:39] LABS: BASOPHILS ABSOLUTE AUTO 0.06 K/mm3 (0.00-0.23); BASOPHILS PERCENT AUTO 1 % (0-2); EOSINOPHILS ABSOLUTE AUTO 0.19 K/mm3 (0.00-0.68); EOSINOPHILS PERCENT AUTO 2 % (0-6); Hematocrit 27.8 % (37.0-53.0); Hemoglobin 9.1 g/dL (13.5-17.5); IMMATURE GRAN ABSOLUTE AUTO 0.26 K/mm3 (0.00-0.10); IMMATURE GRAN PERCENT AUTO 3 % (0-1); LYMPHOCYTES ABSOLUTE AUTO 4.83 K/mm3 (0.84-5.20); LYMPHOCYTES PERCENT AUTO 47 % (21-46); MONOCYTES ABSOLUTE AUTO 0.79 K/mm3 (0.16-1.47); MONOCYTES PERCENT AUTO 8 % (4-13); Mean Corpuscular HGB Conc 32.7 g/dL (31.5-36.5); Mean Corpuscular Volume 86 fL (80-100); NEUTROPHILS ABSOLUTE AUTO 4.12 K/mm3 (1.96-9.15); NEUTROPHILS PERCENT AUTO 40 % (41-73); NRBC ABSOLUTE 0.02 K/mm3 (0.00-0.02); NRBC Auto 0.2 /100 WBC (0.0-0.2); Platelet Count 575 K/mm3 (150-400); RDW Coefficient Variation 21.1 % (11.7-14.2); RDW Standard Deviation 65.1 fL (35.1-46.3)
[2024-10-20 06:31] LABS: Anion Gap 8.0 mmol/L (3-11); Blood Urea Nitrogen 13.0 mg/dL (8-24); CO2, Blood 23.0 mmol/L (21-32); Calcium, Blood 8.2 mg/dL (8.5-10.1); Chloride, Blood 110.0 mmol/L (98-108); Creatinine, Blood 0.97 mg/dL (0.60-1.20); Glucose, Blood 90.0 mg/dL (70-99); Potassium, Blood 3.8 mmol/L (3.5-5.5); Sodium, Blood 137.0 mmol/L (136-145)
[2024-10-20 07:40] VITALS: BP 144/82
[2024-10-20] MEDS ORDERED: ASPI81CH PO ×2 (13:24)
[2024-10-20] MEDS ORDERED: AMOCLA875 PO ×2 (13:24)
[2024-10-20] MEDS ORDERED: VISBIOME 112.51 EACH PO ×2 (13:24)
[2024-10-20] MEDS ORDERED: SUCR1 PO ×2 (13:24)
--- NOTE | 2024-10-20 15:01 | NUR ---
PT DISCHARGED AT 1414 WITH DC INSTRUCTIONS. WHEELCHAIR OUT TO PRIVATE CAR TO TRANSFER HOME. PLAN TO F/U GI FOR EGD/OR COLONOSCOPY. SCRIPT FOR OXY 5MG X5 PILLS.
== END 2024-10-20 14:50 | disposition home or self-care (01) | DRG 871 ==
LOC: ER 21:32 → MEDS 10-16 00:19 → ER 10-16 00:19 → ICUE 10-16 00:19 → EOR 10-16 00:19 → EDBEDREQSVC 10-16 02:12 → EDBEDREQ 10-16 02:12 → ICUE 10-16 02:42 → MEDS 10-17 23:44
PROVIDERS: Family Medicine; Internal Medicine; Student in an Organized Health Care Education/Training Program; ADMIT Student in an Organized Health Care Education/Training Program
PROC: 3E03329 Introduction of Other Anti-infective into Peripheral Vein, Percutaneous Approach (ICD-10-PCS; principal; 2024-10-15)
PROC: 3E043XZ Introduction of Vasopressor into Central Vein, Percutaneous Approach (ICD-10-PCS; 2024-10-15)
PROC: 02HV33Z Insertion of Infusion Device into Superior Vena Cava, Percutaneous Approach (ICD-10-PCS; 2024-10-15)
PROC: 30233N1 Transfusion of Nonautologous Red Blood Cells into Peripheral Vein, Percutaneous Approach (ICD-10-PCS; 2024-10-16)
DX: A41.9 Sepsis, unspecified organism (principal); G92.8 Other toxic encephalopathy; J18.9 Pneumonia, unspecified organism; R65.21 Severe sepsis with septic shock; J96.01 Acute respiratory failure with hypoxia; G93.41 Metabolic encephalopathy; N17.9 Acute kidney failure, unspecified; B37.89 Other sites of candidiasis; K92.1 Melena; D64.9 Anemia, unspecified; I25.10 Atherosclerotic heart disease of native coronary artery without angina pectoris; I10 Essential (primary) hypertension; K21.9 Gastro-esophageal reflux disease without esophagitis; E78.5 Hyperlipidemia, unspecified; E88.09 Other disorders of plasma-protein metabolism, not elsewhere classified; E03.9 Hypothyroidism, unspecified; G62.9 Polyneuropathy, unspecified; Z95.1 Presence of aortocoronary bypass graft; Z79.82 Long term (current) use of aspirin; Z79.891 Long term (current) use of opiate analgesic; Z79.890 Hormone replacement therapy
CPT/HCPCS: 36415; 36416; 36430; 36556; 51702; 71045; 71260; 74177; 80048; 80053; 80202; 81001; 82270; 82607; 82728; 82746; 82803; 83540; 83550; 83605; 83735; 84145; 85014; 85018; 85025; 85610; 85730; 86850; 86900; 86901; 86923; 87040; 87070; 87205; 87637; 92526; 92610; 93005; 93010; 94760; 94762; 96361; 96365; 96366; 96368; 97162; 97530; 99291-25; 99292; A9270; C1751; J0456; J0692; J0696; J1650; J1720; J2470; J3373; J7040; J7050; J7060; J7120; P9016